=== PATIENT | female | born 1980 | race Caucasian/White ===

== ENCOUNTER 2016-10-12 05:26 | Observation (INO) | payer OTHER ==
[~2016-10-12] VITALS: Ht 165.1 cm; Wt 125.1 kg
[2016-10-12] MEDS ORDERED: CHLORHEXIDINE GLUCONATE 2 % 1 PACK (2 CLOTHS) TOPICAL PRN (05:45)
[2016-10-12] MEDS ORDERED: SODIUM CHLORID 0.9% 500 ML IV PRN (05:45)
[2016-10-12] MEDS ORDERED: ceFAZolin 2 GM PREMIX 50 ML IV SCH (05:45)
[2016-10-12] MEDS ORDERED: POVIDONE IODINE 5% (ANTISEPSIS KIT) 4 APPLICATIONS EACH NARE PRN (05:45)
[2016-10-12] MEDS ORDERED: LACTATED RINGER'S 1000 ML IV PRN (05:45)
[2016-10-12] MEDS ORDERED: METOPROLOL TARTRATE 25 MG TAB PO PRN (05:45)
[2016-10-12] MEDS ORDERED: INSULIN HUMAN REGULAR 1,000 UNITS/10 ML VIAL SQ PRN (05:45)
[2016-10-12 06:21] VITALS: BP 141/67; PULSE 86; RESP 18; TEMP 98.8; O2SAT 98
[2016-10-12 06:39] LABS: AUTOMATED NEUTROPHIL # 2.8 TH/MM3 (1.8-7.7); BASOPHIL # 0.1 TH/MM3 (0-0.2); EOSINOPHIL % 0.5 % (0.0-4.0); HEMATOCRIT 39.6 % (35.0-46.0); LYMPH % 41.9 % (9.0-44.0); LYMPHOCYTE # 2.4 TH/MM3 (1.0-4.8); MEAN CORPUSCULAR HEMOGLOBIN 28.1 PG (27.0-34.0); MEAN CORPUSCULAR HGB CONC 32.3 % (32.0-36.0); MONO % 6.5 % (0.0-8.0); NEUT % 50.1 % (16.0-70.0); PLATELET COUNT 212 TH/MM3 (150-450); RED BLOOD COUNT 4.55 MIL/MM3 (4.00-5.30); RED CELL DISTRIBUTION WIDTH 14.8 % (11.6-17.2); WHITE BLOOD COUNT 5.6 TH/MM3 (4.0-11.0)
[2016-10-12 06:46] LABS: HEMO FLAGS AUTO DIFF
[2016-10-12 07:06] LABS: BETA HCG QUANT LESS THAN 1 MIU/ML (0-5)
[2016-10-12] MEDS ORDERED: APREPITANT 40 MG CAP ONE (07:20)
[2016-10-12] MEDS ORDERED: DEXAMETHASONE SOD PHOS 4 MG/ML VIAL ONE (07:20)
[2016-10-12] MEDS ORDERED: ACETAMINOPHEN 1000 MG/100 ML VIAL IV ONE (07:20)
[2016-10-12] MEDS ORDERED: MIDAZOLAM HCL 2 MG/2 ML VIAL ONE (07:20)
[2016-10-12 07:32] LABS: SCAN/DIFF AUTO DIFF CONFIRMED
[2016-10-12] MEDS ORDERED: HYDROmorphone HCL PF 2 MG/ML VIAL ONE (07:49)
[2016-10-12] MEDS ORDERED: LIDOCAINE 1%/EPINEPHrine 1:100,000 SOLN 30 ML VIAL INFIL ONE (07:58)
--- NOTE | 2016-10-12 10:09 | PD.OP ---
Operative Report Date of Surgery: Oct 12, 2016 Preoperative Diagnosis: (1) Pelvic pain in female Postoperative Diagnosis: (1) Pelvic pain in female Procedure: LAVH LSO and right salpingectomy Anesthesia: general Martha Gayle MD Surgeon: Derick Gibbs Sales Project Administrator(s): Severino Finn MS3 Derick Gibbs MD Oct 12, 2016 10:09
[2016-10-12] MEDS ORDERED: DO NOT ADM ANY ANTICOAGULANT DRUGS PRN (10:14)
[2016-10-12] MEDS ORDERED: KETOROLAC TROMETHAMINE 30 MG/ML (IVP) VIAL IVP PRN (10:15)
[2016-10-12] MEDS ORDERED: oxyCODONE/ACETAMINOPHEN 5 MG/325 MG TAB PO PRN ×2 (10:15)
[2016-10-12] MEDS ORDERED: SODIUM CHLORIDE 0.9% FLUSH 10 ML FLUSH IV FLUSH PRN (10:15)
[2016-10-12] MEDS ORDERED: HYDROmorphone HCL PF 1 MG/ML VIAL IVP PRN (10:15)
[2016-10-12] MEDS ORDERED: diphenhydrAMINE HCL 25 MG CAP PO PRN (10:15)
[2016-10-12] MEDS ORDERED: ONDANSETRON HCL 4 MG/2 ML VIAL IVP PRN (10:15)
[2016-10-12] MEDS ORDERED: fentaNYL CITRATE 250 MCG/5 ML AMP ONE (10:17)
[2016-10-12] MEDS: LACTATED RINGER'S 1000 ML INJ 1,000 ML IV SCH ×2 (11:00→18:36)
[2016-10-12 11:30] VITALS: BP 109/59; PULSE 72; RESP 18; TEMP 97.6; O2SAT 97
[2016-10-12] MEDS ORDERED: ePHEDrine/NS 25 MG/5 ML SYR IV ONE (13:03)
[2016-10-12] MEDS ORDERED: PROPOFOL 200 MG/20 ML AMP IV ONE (13:03)
[2016-10-12] MEDS ORDERED: NEOSTIGMINE 3 MG/3 ML SYR IV ONE (13:03)
[2016-10-12] MEDS ORDERED: ONDANSETRON HCL 4 MG/2 ML VIAL IV PUSH ONE (13:04)
[2016-10-12] MEDS ORDERED: LACTATED RINGER'S 1000 ML INJ 1,000 ML IV ONE (13:04)
[2016-10-12 16:00] VITALS: BP 112/67; PULSE 79; RESP 16; TEMP 98.4; O2SAT 96
[2016-10-12] MEDS: IBUPROFEN 600 MG TAB PO PRN (19:57)
[2016-10-12 20:00] VITALS: BP 119/69; PULSE 92; RESP 18; TEMP 100; O2SAT 94
[2016-10-12] MEDS: SODIUM CHLORIDE 0.9% FLUSH 10 ML FLUSH IV FLUSH SCH (20:05)
[2016-10-13] VITALS: BP 118/62; PULSE 95; RESP 18; TEMP 99.8; O2SAT 96
[2016-10-13] MEDS: IBUPROFEN 600 MG TAB PO PRN (02:48)
[2016-10-13] MEDS: LACTATED RINGER'S 1000 ML INJ 1,000 ML IV SCH (02:49)
[2016-10-13 04:00] VITALS: BP 116/59; PULSE 86; RESP 18; TEMP 99.2; O2SAT 95
[2016-10-13 05:37] LABS: AUTOMATED NEUTROPHIL # 7.7 TH/MM3 (1.8-7.7); BASOPHIL % 0.1 % (0.0-2.0); EOSINOPHIL % 0.1 % (0.0-4.0); HEMATOCRIT 32.5 % (35.0-46.0); HEMO FLAGS DIFF FINAL; LYMPH % 18.7 % (9.0-44.0); LYMPHOCYTE # 1.9 TH/MM3 (1.0-4.8); MEAN CELL VOLUME 87.2 FL (80.0-100.0); MEAN CORPUSCULAR HEMOGLOBIN 29.2 PG (27.0-34.0); MEAN CORPUSCULAR HGB CONC 33.5 % (32.0-36.0); NEUT % 74.1 % (16.0-70.0); PLATELET COUNT 189 TH/MM3 (150-450); RED BLOOD COUNT 3.72 MIL/MM3 (4.00-5.30); RED CELL DISTRIBUTION WIDTH 15.1 % (11.6-17.2); WHITE BLOOD COUNT 10.4 TH/MM3 (4.0-11.0)
[2016-10-13 08:00] VITALS: BP 133/88; PULSE 68; RESP 16; TEMP 96.2; O2SAT 97
--- NOTE | 2016-10-13 08:59 | HHI.OB ---
Subjective Post Operative Day: 1 Remarks doing well Objective Vitals/I&O Vital Signs Date Time Temp Pulse Resp B/P Pulse Ox O2 Delivery O2 Flow Rate FiO2 10/13/16 08:00 96.2 68 16 133/88 97 10/13/16 04:00 99.2 86 18 116/59 95 10/13/16 00:00 99.8 95 18 118/62 96 10/12/16 20:00 100.0 92 18 119/69 94 10/12/16 16:00 98.4 79 16 112/67 96 10/12/16 11:30 97.6 72 18 109/59 97 10/12/16 11:15 98.0 69 14 124/58 94 Nasal Cannula 2 10/12/16 11:00 69 14 127/58 94 Nasal Cannula 3 10/12/16 10:45 68 14 122/65 94 Nasal Cannula 3 10/12/16 10:30 65 14 119/66 96 Nasal Cannula 3 10/12/16 10:14 98.0 75 14 126/69 99 Nasal Cannula 3 Result Diagram: 10/13/16 0439 Objective Remarks GENERAL: Well-nourished, well-developed patient. CARDIOVASCULAR: Regular rate and rhythm without murmurs, gallops, or rubs. RESPIRATORY: Breath sounds equal bilaterally. No accessory muscle use. ABDOMEN/GI: Abdomen soft, non-tender, bowel sounds present. Incision: Clean, dry and intact. Fundus: Firm, non-tender at umbilicus. GENITOURINARY: Light to moderate bleeding. EXTREMITIES: No cyanosis or edema, non-tender, without signs of DVT. Medications and IVs Current Medications Medications (Trade) Dose Ordered Sig/Brianna Route Start Time Stop Time Status Last Admin Lactated Ringer's 1,000 ml @ 30 mls/hr Q24H PRN IV 10/12/16 05:45 10/15/16 05:44 10/12/16 06:15 (NS 500 ml Inj) 500 ml @ 30 mls/hr [id number] PRN IV 10/12/16 05:45 10/15/16 05:44 (NS Flush) 2 ml UNSCH PRN IV FLUSH 10/12/16 10:15 (NS Flush) 2 ml BID IV FLUSH 10/12/16 21:00 (Motrin) 600 mg Q6H PRN PO 10/12/16 10:15 10/13/16 02:48 (Toradol Inj) 30 mg Q6H PRN IVP 10/12/16 10:15 10/17/16 10:14 (Percocet 5-325 Mg) 1 tab Q4H PRN PO 10/12/16 10:15 (Percocet 5-325 Mg) 2 tab Q4H PRN PO 10/12/16 10:15 (Dilaudid Pf Inj) 1 mg Q4H PRN IVP 10/12/16 10:15 (Benadryl) 25 mg Q6H PRN PO 10/12/16 10:15 Ondansetron HCl 4 mg 4 mg Q6H PRN IVP 10/12/16 10:15 (Lr 1000 ml Inj) 1,000 ml @ 125 mls/hr Q8H IV 10/12/16 11:00 10/13/16 02:49 Miscellaneous Information ALL NURSING DEPARTME... UNSCH PRN .XX 10/12/16 10:14 10/13/16 10:13 Assessment/Plan Problem List: (1) Pelvic pain in female Discharge Planning doing well Derick Gibbs MD Oct 13, 2016 08:58
[2016-10-13] MEDS: SODIUM CHLORIDE 0.9% FLUSH 10 ML FLUSH IV FLUSH SCH (09:00)
--- NOTE | 2016-10-13 09:08 | HHI.DCPOC ---
Discharge Care Plan Diagnosis: (1) Pelvic pain in female Report Symptoms to Your Doctor -Temperature above 100.5 degrees -Redness, of incision or excessive or foul smelling drainage -Unusual pain or calf pain -Increased vaginal bleeding -Painful or difficulty urinating -Feelings of extreme sadness or anxiety after 2 weeks Goals to Promote Your Health * To prevent worsening of your condition and complications * To maintain your health at the optimal level Directions to Meet Your Goals Take your medications as prescribed Follow your dietary instruction Follow activity as directed Ensure plenty of rest for recovery Drink fluids for hydration Keep your appointments as scheduled Take your immunizations and boosters as scheduled If your symptoms worsen call your PCP, if no PCP go to Urgent Care Center or Emergency Room Smoking is Dangerous to Your Health. Avoid second hand smoke Call the 24-hour crisis hotline for domestic abuse at Derick Gibbs MD Oct 13, 2016 09:08
[2016-10-13] MEDS ORDERED: HYDR-3366 PO (09:13)
--- NOTE | 2016-10-14 17:06 | MP ---
cc: BAYLEE GIBBS M.D. DATE OF SURGERY: 10/14/2016 OPERATION: Operative laparoscopy with a left salpingo-oophorectomy. Laparoscopic assisted vaginal hysterectomy. Right salpingectomy. SURGEON: Baylee Gibbs MD. COLORS CUSTODIAN: Assisted by SUHAIL Guillen. ANESTHESIA: General, Dr. Martha Gayle ESTIMATED BLOOD LOSS 200 cc. FINDINGS Normal anatomy by the uterus. PREOPERATIVE DIAGNOSIS Pelvic pain. POSTOPERATIVE DIAGNOSIS Pelvic pain. PROCEDURE IN DETAIL After informed consent the patient operating room where she placed in supine position legs in the [facility]. Perineum and vagina prepped, draped normal sterile fashion after adequate anesthesia assured and time-out was taken for the procedure and identifying the patient. A speculum placed vagina. Cervix crest single-tooth tenaculum and acorn uterine manipulator placed in the cervix. Cervix was noted to be normal but the vagina was very small and narrow. A Almaraz catheter was placed to gravity. Good clear urine was noted. Gloves were changed and 5 mm infraumbilical incision was then made, carried sharply into the subcutaneous tissue, I entered the abdomen under direct visualization with a optical trocar. A left and right lower quadrant trocars were placed under direct visualization. The upper and lower abdomen were normal. The uterus was normal but boggy. As requested the patient had a left fallopian tube and ovary removed along with her right fallopian tube. The right ovary appeared normal. Using a Harmonic scalpel we came across mesosalpinx on the right and infundibulopelvic on the left continuing down level of the round ligament. We dissected the round ligament and dissected it with a Harmonic scalpel continued down the broad ligament until we reached the bladder flap. The bladder flap was dissected with sharp dissection secondary to scar tissue, previous section. We dissected the bladder pushed it down off the cervix, continuing take the cervical branches of the uterine arteries. At this point we went down below where the legs were extended backward we then had very little descent. With some difficulty with entered the anterior cul-de-sac, which had been pre scored from above. The posterior cul-de-sac was more difficult to enter, we clamped, cut the uterosacral and cardinal ligaments for the posterior peritoneum was entered. Once we entered the posterior peritoneum the last pedicle was clamped, cut and tied and uterus was amputated and removed. Vaginal cuff was run with running locking stitch of Vicryl suture and then closed with [id number] sutures. Good hemostasis was achieved. We reinsufflated the abdomen after gloves were changed and the pelvis was noted be hemostatic. All areas of surgery were hemostatic. All blood was removed from the abdomen. The 5 mm incisions, three of them, were closed at the umbilicus and left and right lower quadrant. The patient tolerated the procedure well. She was taken to the Recovery Room in stable condition. MD ALLIE Bustos/keyana /4:59 PM /4:22 PM
== END 2016-10-13 11:14 | disposition home or self-care (01) ==
LOC: HSDC 05:26 → HSDI 10:06 → HOCB 11:33
PROVIDERS: ADMIT Obstetrics & Gynecology; ATTEND Obstetrics & Gynecology
DX: N86 Erosion and ectropion of cervix uteri (principal); N83.02 Follicular cyst of left ovary; Z88.1 Allergy status to other antibiotic agents; E03.9 Hypothyroidism, unspecified; E66.9 Obesity, unspecified; Z68.42 Body mass index [BMI] 45.0-49.9, adult; F32.9 Major depressive disorder, single episode, unspecified; Z87.891 Personal history of nicotine dependence
CPT/HCPCS: 58552; 84702; 85025; 86850; 86900; 86901; 88307; G0378; J0131; J0690; J1100; J1170; J2250; J2405; J2710; J3010; J7120; J8501